=== PATIENT | male | born 1995 | race Caucasian/White ===

== ENCOUNTER 2017-03-10 15:25 | Emergency (ER) | payer OTHER ==
[~2017-03-10] VITALS: Ht 165.1 cm; Wt 39.0 kg
[2017-03-10 15:27] VITALS: Ht 165.1 cm; Wt 39.0 kg
--- NOTE | 2017-03-10 16:15 | ERD ---
ER Documentation Chief Complaint Date/Time DATE: 03/10/17 TIME: 15:50 Chief Complaint sent by PCP for difficulty swallowing HPI 21-year-old male who presented emergency department for multiple complaints. Father stated they were sent here by his primary care physician, Zoila Jesus because it will take too long for him to get a EGD referral. Patient stated that he had a loss of weight for the past month but very specific of the exact weight loss he had. He also stated that he drinks Ensure at home without difficulty swallowing. Denies headache, blurry vision, neck pain, throat pain, difficulty swallowing, shoulder pain, chest pain, back pain, abdominal pain, nausea, vomiting, changes in bowel and bladder habits, constipation, diarrhea, urinary symptoms, changes in diet, recent exposure to any illness, recent long travel, fever, chills. No known drug allergies. 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 Medication: Denies any prescription medication at home. Social: Not working at this time. Denies smoking, use of alcohol misuse illegal drugs. ROS All systems reviewed and are negative except as per history of present illness. 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 Throat: Uvula is in midline and nondisplaced. Tonsils are +1 bilaterally without redness and without exudates. Tolerating secretions. Patent airway. Speaks full and clear sentences. Neck: Full range of motion..~ No meningismus. Resp: Clear to auscultation bilaterally. Respirations even and unlabored. Lung sounds are clear to auscultation. Cardio: Regular rate and rhythm, no murmurs. Regular rate and rhythm with a heart. Abd: Soft, non tender, non distended. Normal bowel sounds. There is no right upper/right lower/epigastric/left upper/left lower abdominal tenderness and light and deep palpation. Negative on Rovsing's sign. Negative Fonda sign. Negative and psoas sign. No peritoneal signs. Skin: No petechiae or rashes. No skin tenting. No signs of dehydration. Back: No midline or flank tenderness. No CVA tenderness. Ext: No cyanosis, or edema. Ambulatory with steady gait and without difficulty. Neurovascular deficits. Neur: Awake and alert x4. No neurological deficits. Psych: Normal Mood and Affect Results 24 hrs Current Medications Medications (Trade) Dose Ordered Sig/Dagmar Route PRN Reason Start Time Stop Time Status Last Admin Dose Admin Barium Sulfate (E-Z-Hd) 135 ml STK-MED ONCE PO 03/10/17 16:44 03/10/17 16:45 DC Simethicone/ Sodium Bicarb/ Citric Ac (E-Z-Gas Ii Eff Granules) 1 each STK-MED ONCE PO 03/10/17 16:45 03/10/17 16:46 DC Procedures/MDM 21-year-old male who presented emergency department for multiple complaints. Father stated they were sent here by his primary care physician, Zoila Jesus because it will take too long for him to get a EGD referral. Patient stated that he had a loss of weight for the past month but very specific of the exact weight loss he had. He also stated that he drinks Ensure at home without difficulty swallowing. Denies headache, blurry vision, neck pain, throat pain, difficulty swallowing, shoulder pain, chest pain, back pain, abdominal pain, nausea, vomiting, changes in bowel and bladder habits, constipation, diarrhea, urinary symptoms, changes in diet, recent exposure to any illness, recent long travel, fever, chills. No known drug allergies. 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 Medication: Denies any prescription medication at home. Social: Not working at this time. Denies smoking, use of alcohol misuse illegal drugs. Physical exam: Throat: Uvula is in midline and nondisplaced. Tonsils are +1 bilaterally without redness and without exudates. Tolerating secretions. Patent airway. Speaks full and clear sentences. Respirations even and unlabored. Lung sounds are clear to auscultation. Regular rate and rhythm with a heart. Active bowel sounds. There is no right upper/right lower/ epigastric/left upper/left lower abdominal tenderness and light and deep palpation. Negative on Rovsing's sign. Negative Sudhir sign. Negative and psoas sign. No peritoneal signs. No CVA tenderness. Ambulatory with steady gait and without difficulty. No skin tenting. No signs of dehydration. Neurovascular deficits. No neurological deficits. Disease process was explained to the patient and his father. They both verbalized understanding and agreed with the plan of care. Case was discussed supervising physician, Dr. Hang Fraga who agreed in my medical decision making and he suggested to do a barium swallow. Barium swallow was negative. Treatment: PO challenge. Reevaluation: Denies headache, dizziness, blurry vision, neck pain, throat pain , difficulty swallowing, shoulder pain, chest pain, abdominal pain, nausea, vomiting. No episode of emesis in the emergency department. Respirations even and unlabored. Lung sounds are clear to auscultation. Active bowel sounds. There is no right upper/right lower/epigastric/left upper/left lower abdominal tenderness and likely palpation. Negative on Rovsing's sing. Negative Fonda sign. Negative on psoas sign. There is no peritoneal signs. No CVA tenderness. Ambulatory with steady gait and without difficulty. No neurological deficit. No neurovascular deficit. Differential diagnosis: Achalasia versus anorexia nervosa versus peritonsillar abscess versus peritonsillar mass versus neck mass Final diagnosis: appetite loss Follow-up with primary care physician the next 24-48 hours. PCP to refer patient to floor runner the next 24-48 hours. Come back in the emergency department for any symptoms or any worsening of symptoms. All questions and concerns are answered. Patient and his father verbalized understanding and agreed with the plan of care. Hemodynamically stable on discharge. Departure Diagnosis: Primary Impression: Appetite loss Condition: Stable Additional Instructions: Follow-up with primary care physician the next 24-48 hours. PCP to refer patient to floor runner the next 24-48 hours. Come back in the emergency department for any symptoms or any worsening of symptoms. All questions and concerns are answered. Patient and his father verbalized understanding and agreed with the plan of care. MARJORIE BULLARD Mar 10, 2017 16:13
[2017-03-10] MEDS ORDERED: BARIUM SULFATE 135 ML (E-Z HD) PO ONE (16:44)
[2017-03-10] MEDS ORDERED: SIMETH/SOD BICARB/CIT AC PKT (E-Z- GAS II) PO ONE (16:45)
--- NOTE | 2017-03-10 18:36 | RADRPT ---
PROCEDURE: XR barium swallow esophagus CLINICAL INDICATION: Sore throat. TECHNIQUE: 4 images of the esophagus were obtained while the patient drank barium contrast. Total fluoroscopic time: 0 seconds. COMPARISON: None. FINDINGS: The examination is markedly limited by poor contrast opacification of the esophagus. Minimal contras t is seen throughout the esophageal lumen. There is also contrast in the stomach. The esophageal muc mallory is not clearly visualized. The visualized lungs are clear. The heart is normal sized. IMPRESSION: 1. Markedly limited examination due to poor contrast opacification of the esophagus. There is no eso phageal obstruction. The esophagus could be better evaluated with esophagoscopy or a fluoroscopic es ophagram, as clinically warranted. RPTAT: HTAR .Mihai Oconnor MD, Date Time Electronically viewed and signed by .Mihai Oconnor MD, MD on 03/10/2017 18:35 .R/
== END 2017-03-10 18:54 | disposition home or self-care (01) ==
LOC: FTE 15:25
DX: R63.0 Anorexia (principal)
CPT/HCPCS: 74230; Z7502; Z7610